=== PATIENT | male | born 1950 | race African-American/Black ===

== ENCOUNTER 2017-06-23 08:17 | Day surgery (SDC) | payer OTHER ==
[~2017-06-23] VITALS: Ht 188 cm; Wt 91.6 kg
[~2017-06-23 08:17] MED LIST: MOBIC15 MG PO; MOTRIN800 MG PO; MULTIPLE VITAM1 EAC1 PO; SYNTHROID75 MCG PO; ULTRAM50 MG PO
== END 2017-06-23 09:50 | disposition home or self-care (01) ==
LOC: PAIN 08:17 → SDC 08:45 → PAIN 09:50
DX: M47.816 Spondylosis without myelopathy or radiculopathy, lumbar region (principal); M54.5 Low back pain; G89.29 Other chronic pain; M51.36 Other intervertebral disc degeneration, lumbar region; M62.830 Muscle spasm of back; Z87.891 Personal history of nicotine dependence; E03.9 Hypothyroidism, unspecified; F32.9 Major depressive disorder, single episode, unspecified; Z79.891 Long term (current) use of opiate analgesic
CPT/HCPCS: J1030; J2250; J3010; S0020

== ENCOUNTER 2017-06-30 10:09 | Day surgery (SDC) | payer OTHER ==
[~2017-06-30] VITALS: Ht 188 cm; Wt 91.7 kg
== END 2017-06-30 12:25 | disposition home or self-care (01) ==
LOC: PAIN 10:09 → SDC 10:45 → PAIN 10:45
DX: M47.816 Spondylosis without myelopathy or radiculopathy, lumbar region (principal); M51.36 Other intervertebral disc degeneration, lumbar region; M54.5 Low back pain; G89.29 Other chronic pain; E03.9 Hypothyroidism, unspecified; M25.551 Pain in right hip; M25.552 Pain in left hip; F32.9 Major depressive disorder, single episode, unspecified; Z87.891 Personal history of nicotine dependence; Z79.891 Long term (current) use of opiate analgesic
CPT/HCPCS: J1030; J2250; J3010; S0020

== ENCOUNTER 2017-08-17 08:08 | Day surgery (SDC) | payer OTHER ==
[~2017-08-17] VITALS: Ht 188 cm; Wt 91.7 kg
== END 2017-08-17 09:30 | disposition home or self-care (01) ==
LOC: PAIN 08:08 → SDC 08:30 → PAIN 09:30
DX: M47.816 Spondylosis without myelopathy or radiculopathy, lumbar region (principal); M54.5 Low back pain; G89.29 Other chronic pain; M51.36 Other intervertebral disc degeneration, lumbar region; F41.9 Anxiety disorder, unspecified; E03.9 Hypothyroidism, unspecified; Z87.891 Personal history of nicotine dependence; Z79.891 Long term (current) use of opiate analgesic
CPT/HCPCS: J1030; J2250; J3010; S0020

== ENCOUNTER 2017-08-24 13:26 | Day surgery (SDC) | payer OTHER ==
[~2017-08-24] VITALS: Ht 188 cm; Wt 91.7 kg
[2017-08-24] MEDS ORDERED: MUCINEX COLD-F177 ML PO (13:45)
== END 2017-08-24 14:44 | disposition home or self-care (01) ==
LOC: PAIN 13:26
DX: M47.816 Spondylosis without myelopathy or radiculopathy, lumbar region (principal); M51.36 Other intervertebral disc degeneration, lumbar region; E03.9 Hypothyroidism, unspecified; F17.200 Nicotine dependence, unspecified, uncomplicated
CPT/HCPCS: J1030; J2250; J3010; S0020

== ENCOUNTER 2017-10-05 08:36 | Day surgery (SDC) | payer OTHER ==
[~2017-10-05] VITALS: Ht 188 cm; Wt 94.3 kg
[~2017-10-05 08:36] MED LIST changes: +MUCINEX COLD-F177 ML PO
== END 2017-10-05 10:25 | disposition home or self-care (01) ==
LOC: PAIN 08:36
DX: M47.816 Spondylosis without myelopathy or radiculopathy, lumbar region (principal); M51.36 Other intervertebral disc degeneration, lumbar region; F17.200 Nicotine dependence, unspecified, uncomplicated; F32.9 Major depressive disorder, single episode, unspecified; E03.9 Hypothyroidism, unspecified
CPT/HCPCS: J1030; J2250; S0020

== ENCOUNTER 2017-10-12 08:04 | Day surgery (SDC) | payer OTHER ==
[~2017-10-12] VITALS: Ht 188 cm; Wt 90.7 kg
== END 2017-10-12 09:48 | disposition home or self-care (01) ==
LOC: PAIN 08:04 → SDC 08:30 → PAIN 08:30
DX: M47.816 Spondylosis without myelopathy or radiculopathy, lumbar region (principal); M51.36 Other intervertebral disc degeneration, lumbar region; M62.830 Muscle spasm of back; E03.9 Hypothyroidism, unspecified; Z87.891 Personal history of nicotine dependence; Z79.891 Long term (current) use of opiate analgesic
CPT/HCPCS: J1030; J2250; S0020